=== PATIENT | male | born 2005 | race Two or more races ===

== ENCOUNTER 2025-04-26 15:46 | Emergency (ER) | payer MEDICAID, SELFPAY ==
[2025-04-26 15:49] VITALS: BMI 24.4
[2025-04-26 16:30] VITALS: BP 144/77; PULSE 80; RESP 18; TEMP 37.2; O2SAT 98
--- NOTE | 2025-04-26 16:41 | PD.EDLOWEX ---
Lower Extremity Injury RME/HPI General Chief Complaint: Extremity Injury, Lower Stated Complaint: RIGHT LEG INJURY x 3 DAYS, WORK INJURY Time Seen by Provider: 04/26/25 15:53 Source: patient, family, RN notes reviewed and old records reviewed Arrival date/time: 04/26/25 15:46 Mode of arrival: ambulatory Limitations: no limitations RME / HPI RME / HPI Narrative: 20yom presents to ED for right thigh pain s/p work injury 3 days ago. Patient states he ran into a piece of machinery and bumped/scraped his right medial thigh, c/o intermittent throbbing/aching pain. No medications or treatment since symptom onset. Patient denies joint pain/swelling or numbness tingling. Unknown last tetanus vaccine. Related Data Previous Rx's ?Medication ?Instructions ?Recorded ibuprofen 600 mg tablet 600 mg PO Q6H PRN pain #30 tabs 04/28/23 ibuprofen 600 mg tablet 600 mg PO Q6H PRN pain #20 tabs 04/26/25 lidocaine 5 % topical patch 1 patch topical QDAY PRN pain #6 ea 04/26/25 methocarbamol 500 mg tablet 1,000 mg (2 x 500 mg) PO Q8H PRN 04/26/25 pain #30 tabs Allergies Allergy/AdvReac Type Severity Reaction Status Date / Time No Known Allergies Allergy Verified 04/26/25 15:52 Review of Systems Musculoskeletal Comments: Reports thigh pain Integumentary/Breasts Comments: Reports abrasion, bruising Past Medical History Surgical History OTHER SURGICAL HX: Denies past surgical history Social History SMOKING STATUS: Current some day smoker SUBSTANCE USE: does not use ALCOHOL: Current (Social) Past Medical History Comments PMH COMMENT: Denies past medical history ED Exam General Limitations: Present no limitations General appearance: Present alert and in no apparent distress Head Head exam: Present atraumatic and normocephalic Eye Eye exam: Present normal appearance, PERRL and EOMI ENT ENT exam: Present normal exam and mucous membranes moist Neck Neck exam: Present normal inspection and full ROM Chest Chest inspection: Present normal inspection and symmetric chest wall rise Respiratory Respiratory exam: Present normal lung sounds bilaterally; Absent respiratory distress Cardiovascular Cardiovascular exam: Present regular rate and normal rhythm Extremities Exam Extremities exam: Present other (Mild tenderness/swelling with contusion to right medial lower thigh with superficial abrasion. No knee ttp) Back Exam Back exam: Present normal inspection and full ROM; Absent tenderness Neurological Exam Neurological exam: Present alert and oriented X3 Psychiatric Psychiatric exam: Present normal affect and normal mood Skin Skin exam: Present warm, dry and other (Superficial abrasion/contusion right medial thigh) Course Quality Measures none Orders Category Date Time Status paola wrap [Splint / Immobilizer] STAT Care 04/26/25 16:41 Completed TET,DIP/PERT AC (Adult)-Tdap [Boostrix Adult (Tdap) Med 04/26/25 16:41 Discontinued Vacc] 0.5 ml IMI .ONCE ONE Vital Signs Vital signs: Vital Signs Temperature 99 F 04/26/25 16:30 Pulse Rate 80 04/26/25 16:30 Respiratory Rate 18 04/26/25 16:30 Blood Pressure 144/77 H 04/26/25 16:30 Pulse Oximetry (%) 98 04/26/25 16:30 Oxygen Delivery Method Room Air 04/26/25 16:30 Extremity Injury, Lower MDM Narrative MDM Narrative:: 20yom presents to ED for right thigh pain s/p work injury 3 days ago. Patient states he ran into a piece of machinery and bumped/scraped his right medial thigh, c/o intermittent throbbing/aching pain. No medications or treatment since symptom onset. Patient denies joint pain/swelling or numbness tingling. Unknown last tetanus vaccine. Exam findings c/w thigh contusion/abrasion. No evidence of hematoma. Encouraged RICE therapy, motrin/tylenol prn pain. Stable for discharge, RTED precautions given. Patient data External records reviewed:: [facility] previous records (04/28/2023 ED visit for right foot contusion) Clinical information provided by:: patient Social determinants that could affect healthcare access:: other (specify) (Poor access to healthcare, acculturation difficulty) Patient has the following chronic illnesses:: None How is presenting disease/condition affected by chronic disease/condition?: no chronic disease Evaluation data The following diagnostics were reviewed and interpreted by me:: other (specify) (None) Lab and/or radiology exams considered but not ordered:: Femur x-rays: Do not suspect fracture or foreign body Interpretation Summary: na Medications / Prescriptions Medications or Prescriptions considered but not ordered:: No antibiotics recommended at this time Medication administrations:: Medication Administration History Discontinued Medications Diphtheria/Tetanus/Acell Pertussis (Diphth,Pertuss(Acell),Tet Vac 0.5 Ml Syr- Adult) 0.5 ml IMi .ONCE ONE Stop: 04/26/25 16:42 Last Admin: 04/26/25 17:23 Dose: 0.5 ml Documented By: Above medication administered in ED Consultations Consultation(s) initiated? (list below): No Diagnosis Extremity Injury, Lower Differential Diagnosis: other (Sprain, strain, contusion, MSK pain, abrasion, laceration, avulsion) Most likely diagnosis given after review of the tests above:: Leg contusion Admission Indicated Admission indicated?: not indicated Admission Request Was there a request for admission?: No Disposition Plan Disposition Plan: Discharge Discharge Attestation Discharge Attestation: The patient and all family members were given an opportunity to ask questions and understood the discharge instructions. Discharge instructions specifically effects, indications for sooner follow up or return to the emergency department, and the expected course of current diagnosis. Patient condition: Stable Discharge Plan Plan Patient Disposition: HOME (Self Care) Patient condition on transfer: Stable Prescriptions/Referrals Prescriptions/Med Rec: New ibuprofen 600 mg tablet 600 mg PO Q6H PRN (Reason: pain) Qty: 20 0RF methocarbamol 500 mg tablet 1,000 mg PO Q8H PRN (Reason: pain) Qty: 30 0RF lidocaine 5 % adhesive patch,medicated 1 patch topical QDAY PRN (Reason: pain) Qty: 6 0RF Rx Instructions: leave on most painful area for up to 12 hrs No Action ibuprofen 600 mg tablet 600 mg PO Q6H PRN (Reason: pain) Qty: 30 0RF Problem List Clinical Impression: Contusion of right thigh Patient/Caregiver Discharge Instructions Education Materials: ED Contusion, Lower Extremity Print Language: Djiboutian Stand Alone Forms: Noni Award Info., Patient Portal Info Letter PA/MANAGER TRANSPORT Supervising Physician PA/MANAGER TRANSPORT Supervising Physician: Michael
[2025-04-26] MEDS: DIPHTH,PERTUSS(ACELL),TET VAC 0.5 ML SYR- ADULT IMi (17:23)
== END 2025-04-26 18:21 | disposition home or self-care (01) ==
PROVIDERS: Emergency Provider Emergency Medicine; PCP Physician Assistant
DX: S70.11XA Contusion of right thigh, initial encounter (principal); W22.8XXA Striking against or struck by other objects, initial encounter; Y99.0 Civilian activity done for income or pay; Z23 Encounter for immunization
CPT/HCPCS: 90471; 90715; 99284